=== PATIENT | male | born 1945 | race Caucasian/White ===

== ENCOUNTER 2016-08-23 14:20 | Inpatient (IN) | payer MEDICARE ==
[~2016-08-23] VITALS: Ht 175.3 cm; Wt 91.6 kg
--- NOTE | ~2016-08-23 | HEMODYNAMI ---
PATIENT:SOLO VALDERRAMA I MEDICAL RECORD: [id number] : 41 [id number] ADMISSION DATE: 08/23/16 Generatedon:08/24/20168:56 Patient name: SLOO VALDERRAMA Patient #: [id number] SSN: : 1945 Date of study: 08/24/2016 Page: Of Hemodynamic Procedure Report Patient Data Patient Demographics Procedure consent was obtained First Name: SOLO Gender: Male Last Name: LAVELLE : 1945 [facility] Initial: I Age: 71 year(s) Patient #: [id number] Race: Additional ID: [id number] Contact details Address: [address] [place] [address] State: [place] City: [place] Zip code: [address] Past Medical History Allergies: No known allergies Admission Admission Data Admission Date: 08/23/2016 Admission Time: 14:20 Room #: D.2116 Lab Results Lab Result Date: 08/24/2016 Lab Result Time: 0:00 Biochemistry Name Units Result Min Max Creatinine mg/dl 0.9 --(-*--)-- 0.6 1.3 CBC Name Units Result Min Max Hemoglobin g/dl 15.4 --(-*--)-- 13.5 17.5 Procedure Procedure Types Cath Procedure Diagnostic Procedure [facility] w/Coronaries PCI Procedure Coronary Stent Initial Miscellaneous Procedures Moderate Sedation up to 45 minutes Procedure Description Procedure Date Procedure Date: 08/24/2016 Procedure Start Time: 8:20 Procedure End Time: 8:51 Procedure Staff Name Function Dwight Aguilar MD Performing Physician Sandy Bains RN Nurse Jeremy Garcia RT Monitor Odilno Shah RT Scrub Procedure Data Cath Procedure Fluoroscopy Diagnostic fluoroscopy Total fluoroscopy Time: time: 13.3 min 13.3 min Diagnostic fluoroscopy Total fluoroscopy dose: dose: 1489 mGy 1489 mGy Contrast Material Contrast Material Type Amount (ml) Isovue 300 153 Entry Location Entry Primary Successful Side Size Upsize Upsize Entry Closure Succes sful Closure Location (Fr) 1 (Fr) 2 (Fr) Remarks Device Remarks Femoral Right 5 Fr 6 Fr Vascade artery Short Closure System Diagnostic catheters Device Type Used For End Catheter Placement Cordis 5Fr Pigtail LV Angiography Catheter (MP) Cordis 5Fr JL 4.0 Left Coronary Catheter (MP) Angiography Cordis 5Fr 3DRC Catheter Right Coronary (MP) Angiography Procedure Complications No complications Procedure Medications Medication Administration Route Dosage Oxygen NC 2 l/min Heparin Flush Bag added to field 2 bags (1000units/500ml NS) Lidocaine 2% added to field 20 Zofran I.V. 4 mg Versed I.V. 0.5 mg Fentanyl I.V. 50 mcg Integrilin (Bolus I.V. 8.5 ml 2mg/ml) Heparin Bolus I.V. 5000 units Versed I.V. 0.5 mg Plavix P.O. 75 mg Hemodynamics Rest HGB: 15.4 (g/dl) Heart Rate: 60 (bpm) Snapshots Pre Cath Intra NCS Post Cath Vital Signs Time Heart Resp SPO2 etCO2 AE1oirc NIBP (mmHg) Rhythm Pain Sedation Rate (ipm) (%) (mmHg) (mmHg) Status Level (bpm) 8:04:06 63 24 100 0 0 133/75(109) NSR 0 (11) 10(A) , No pain 8:08:24 63 30 99 0 0 123/79(102) NSR 0 (11) 10(A) , No pain 8:12:30 59 29 100 0 0 111/61(97) NSR 0 (11) 10(A) , No pain 8:16:40 64 25 99 0 0 112/65(90) NSR 0 (11) 10(A) , No pain 8:20:54 52 33 100 0 0 103/55(82) SB 0 (11) 10(A) , No pain 8:25:02 62 19 100 0 0 108/62(85) NSR 0 (11) 9(A) , No pain 8:29:14 61 16 100 0 0 104/57(79) NSR 0 (11) 9(A) , No pain 8:33:23 62 20 100 0 0 100/59(81) NSR 0 (11) 9(A) , No pain 8:37:29 59 18 100 0 0 108/62(85) NSR 0 (11) 9(A) , No pain 8:41:39 61 18 100 0 0 97/60(73) NSR 0 (11) 10(A) , No pain 8:45:47 52 18 100 0 0 103/57(79) SB 0 (11) 10(A) , No pain 8:49:55 52 18 100 0 0 104/55(88) SB 0 (11) 10(A) , No pain Medications Time Medication Route Dose Verified Delivered Reason Notes Effectiveness by by 8:03:32 Oxygen NC 2 Dwight Sandy Per physician pt repo rts l/min Lauren Bains RN shortness of breath, pt has noted laboured breathing with congestion, and expiratory audible wheezing. 8:03:40 Heparin Flush added 2 Dwight Dwight used for Bag to bags Lauren Aguilar MD procedure (1000units/500ml field NS) 8:03:46 Zofran I.V. 4 mg Dwight Sandy Per physician pt repo rts Lauren Bains RN nausea and is retching 8:03:46 Lidocaine 2% added 20ml Dwight Dwight used for to vial Lauren Aguilar MD procedure field 8:15:08 Versed I.V. 0.5 Dwight Sandy for sedation mg Lauren Bains RN 8:15:25 Fentanyl I.V. 50 Dwight Sandy for sedation mcg Lauren Bains RN 8:24:49 Heparin Bolus I.V. 5000 Dwight Thorntonca for dose units Lauren Bains RN anticoagulation verified wtih dr aguilar 8:28:53 Integrilin I.V. 8.5 Dwight Sandy for 1.5 ml (Bolus 2mg/ml) ml Lauren Bains RN antiplatelet wasted therapy 8:30:17 Versed I.V. 0.5 Dwight Sandy for sedation mg Lauren Bains RN 8:50:01 Plavix P.O. 75 mg Dwight Sandy for Lauren Bains RN antiplatelet therapy Procedure Log Time Note 7:30:52 Jeremy Garcia RT(R) sent for patient. Start room use. 7:33:42 Diagnostic Cath status Elective 7:33:53 Time tracking: Regular hours 7:33:58 Plan of Care:Hemodynamics will remain stable., Cardiac rhythm will remain stable., Comfort level will be maintained., Respiratory function will remain adequate., Patient/ family verbilizes understanding of procedure., Procedure tolerated without complication., Recovers from procedure without complications.. 7:53:34 Patient received from PCU to CCL 1 Alert and oriented. Tansferred to table in Supine position. 7:53:36 Warm blankets applied, and chelle hugger turned on for patient comfort. 7:53:36 Correct patient and procedure confirmed by team. 7:53:37 Signed procedure consent form obtained from patient. 7:53:38 ECG and BP/O2 sat monitors applied to patient. 7:53:39 Full Disclosure recording started 8:02:56 Vital chart was started 8:03:32 Oxygen 2 l/min NC was given by Sandy Bains RN; Per physician; pt reports shortness of breath, pt has noted laboured breathing with congestion, and expiratory audible wheezing. 8:03:40 Heparin Flush Bag (1000units/500ml NS) 2 bags added to field was given by Dwight Aguilar MD; used for procedure; 8:03:46 Zofran 4 mg I.V. was given by Sandy Bains RN; Per physician; pt reports nausea and is retching 8:03:46 Lidocaine 2% 20ml vial added to field was given by Dwight Aguilar MD; used for procedure; 8:04:59 Rhythm: sinus rhythm 8:05:32 H&P Date Dictated: 08/23/2016 Within 30 days and on chart.. 8:05:41 Pre-procedure instructions explained to patient. 8:05:41 Pre-op teaching completed and patient verbalized understanding. 8:05:42 Family in waiting room. 8:05:44 Patient NPO since Midnight. 8:05:49 Patient allergic to No known allergies 8:05:52 Is the patient allergic to Iodine/contrast media? No. 8:05:53 Is patient on blood thinner?Yes 8:05:56 ACC The patient was administered the following blood thiners within the last 24 hours: ACCPlavix 8:06:03 Patient diabetic? No. 8:06:27 Previous problem with sedation/anesthesia? No ? 8:06:29 Snore? Yes 8:06:30 Sleep apnea? No 8:06:31 Deviated septum? No 8:06:51 Opens mouth fully? Yes 8:06:52 Sticks out tongue? Yes 8:06:56 Airway obstruction? Yes COPD 8:06:59 Dentures? No ? 8:07:02 Pre procedure: right dorsailis pedis pulse 2+ Normal; easily identifiable; not easily obliterated 8:07:04 Modified Corby's test Ulnar > 7 seconds. 8:07:06 Patient pain scale 0/10 ?. 8:07:13 IV patent on arrival in left forearm with 0.9% NaCl at [facility]. 8:08:10 Lab Result : Creatinine 0.9 mg/dl 8:08:10 Lab Result : Hemoglobin 15.4 g/dl 8:08:14 Lab results completed and on chart. 8:08:17 Right groin area was prepped with chlora-prep and draped in sterile fashion 8:08:17 Alarms reviewed by R. N. 8:08:19 Sharps counted by scrub and verified by R.N. 8:08:26 Use device set Femoral Dx 8:08:27 Acist Syringe opened to sterile field. 8:08:28 Bag Decanter opened to sterile field. 8:08:28 Medline Cath Pack opened to sterile field. 8:08:29 Terumo 5Fr [employer] Sheath opened to sterile field. 8:08:29 St Americo 260cm J .035 wire opened to sterile field. 8:08:30 Acist Hand Control opened to sterile field. 8:08:31 Acist Manifold opened to sterile field. 8:08:31 Diagnostic Infinity 5Fr Multipack catheter opened to sterile field. 8:08:32 Tegaderm 4 x 4 opened to sterile field. 8:08:39 Baseline sample Acquired. 8:10:26 ACC Patient presents with Unstable Angina CCS Anginal Class 3--Marked limitation of physical activity, angina occurs with ordinary activity.. 8:14:42 --------ALL STOP TIME OUT------ 8:14:43 Final Timeout: patient, procedure, and site verified with staff and physician. All members of the team are in agreement. 8:14:46 Right groin site verified by team. 8:14:49 Physical assessment completed. ASA score P 3 - A patient with severe systemic disease as per Dwight Aguilar MD. 8:14:54 Sedation plan: IV Moderate Sedation Versed, Fentanyl 8:15:08 Versed 0.5 mg I.V. was given by Sandy Bains RN; for sedation; 8:15:25 Fentanyl 50 mcg I.V. was given by Sandy Bains RN; for sedation; 8:19:31 Zero performed for pressure channel P1 8:19:34 Zero performed for pressure channel P1 8:19:36 Zero performed for pressure channel P1 8:19:39 Zero performed for pressure channel P1 8:19:58 Procedure started. 8:20:04 Local anesthetic to right femoral artery with Lidocaine 2% by Dwight Aguilar MD.INITIAL ACCESS ONLY 8:20:10 A 5 Fr sheath was inserted into the Right Femoral artery 8:20:52 A Cordis 5Fr Pigtail Catheter (MP) was advanced over the wire and used for LV Angiography. 8:21:30 LV angiography performed. 8:21:32 LV gram done using AGARWAL 8:21:57 EF : 20 % 8:22:00 Catheter removed. 8:22:06 A Cordis 5Fr JL 4.0 Catheter (MP) was advanced over the wire and used for Left Coronary Angiography. 8:22:09 LCA angiography performed. 8:23:00 Catheter removed. 8:23:27 A Cordis 5Fr 3DRC Catheter (MP) was advanced over the wire and used for Right Coronary Angiography. 8:23:30 RCA angiography performed. 8:24:27 Catheter removed. 8:24:40 Terumo 6Fr [employer] Sheath opened to sterile field. 8:24:40 Cevallos Whisper J 300cm 0.014 guide wire opened to sterile field. 8:24:41 [employer] BasixCompak Inflation Kit opened to sterile field. 8:24:41 Cordis 6FR XBLAD 4.0 guide catheter opened to sterile field. 8:24:49 Heparin Bolus 5000 units I.V. was given by Sandy Bains RN; for anticoagulation; dose verified wtih dr aguilar 8:24:49 Sheath upsized to a 6 Fr Short. 8:25:07 ACC PCI Site: LMCA has 90% stenosis. 8:25:12 ACC PCI Site: pLAD has 90% stenosis. 8:25:14 ACC Pre-intervention ANTONIA Flow is 3. 8:25:20 6 Fr XBLAD 4 guide catheter was inserted over the wire 8:27:01 WHISPER wire advanced. 8:27:48 CX 8:27:58 Cevallos Whisper J 300cm 0.014 guide wire opened to sterile field. 8:28:07 WHISPER wire advanced. 8:28:13 LAD 8:28:53 Integrilin (Bolus 2mg/ml) 8.5 ml I.V. was given by Sandy Bains RN; for antiplatelet therapy; 1.5 ml wasted 8:30:17 Versed 0.5 mg I.V. was given by Sandy Bains RN; for sedation; 8:31:39 Wire removed. 8:31:49 LAD WIRE REMOVED 8:32:00 Cevallos Fielder XT J 300cm 0.014 guide wire opened to sterile field. 8:32:16 Cevallos Fielder XT J 300cm 0.014 guide wire opened to sterile field. 8:32:26 LAD FIELDER wire advanced. 8:35:38 Wire removed. 8:35:45 LAD OUT 8:36:57 Venture 6F catheter opened to sterile field. 8:37:21 6 Fr VENTURE guide catheter was inserted over the wire 8:37:28 FIELDER wire advanced. 8:40:06 Newton Danfoss IXA Sensor Technologies Choice PT Extra Support J 300cm .014 gu opened to sterile field. 8:40:23 Wire removed. 8:40:34 CPTES wire advanced. 8:41:55 Guide catheter removed. 8:42:02 VENTURE 8:42:08 Wire removed. 8:43:04 Inflation number: 1 A Newton Sci Dupage 2.5 X 15 balloon was prepped and advanced across the Prox CX, then inflated to 19 HU for 0:15 (min:sec). 8:43:16 Balloon removed over the wire. 8:45:17 Inflation Number: 1 A Medtronic Resolute 3.0 X 38 stent was prepped and advanced across the LMCA. The stent was deployed at 15 HU for 0:11 (min:sec). 8:46:04 Inflation number: 2 The stent balloon was then re-inflated across the LMCA to 21 HU for 0:11 (min:sec). 8:46:26 Stent catheter was removed intact over wire. 8:46:27 Wire removed. 8:46:28 Guide catheter removed. 8:46:43 Contrast amount:Isovue 300 153ml. 8:46:49 Sheath removed intact; hemostasis achieved with Vascade Closure System to the Right Femoral artery. 8:46:55 Vascade 6/7 Fr Closure Device opened to sterile field. 8:47:01 Procedure ended.(Physican Out) 8:47:14 Fluoroscopy time 13.30 minutes. 8:47:20 Fluoroscopy dose: 1489 mGy 8:47:20 Flurop Dose total: 1489 8:47:21 Sharps counted by scrub and verified by R.N. 8:47:22 Insertion/operative site no bleeding no hematoma. 8:47:24 Post-op/insertion site Right Femoral artery dressed using a 4 x 4 and Tegaderm. 8:47:27 Post right femoral artery:stable 8:47:45 Post Procedure Pulses reassessed and unchanged 8:47:46 Post procedure: right dorsailis pedis pulse 1+ Palpable, but thready & weak; easily obliterated. 8:47:51 Post procedure rhythm: sinus rhythm 8:47:52 Post procedure instruction explained to patient.Patient verbalizes understanding. 8:47:53 Patient needs reinforcement of post procedure teaching. 8:48:19 Procedure type changed to Cath procedure, Diagnostic procedure, LHC, LHC w/Coronaries, PCI procedure, Coronary Stent Initial, Miscellaneous Procedures, Moderate Sedation up to 45 minutes 8:48:48 Procedure and supply charges have been captured, reviewed, submitted and are correct. 8:49:15 Procedure Complication : No complications 8:49:24 St Americo Femstop Arch Gold opened to sterile field. 8:50:01 Plavix 75 mg P.O. was given by Sandy Bains RN; for antiplatelet therapy; 8:50:24 Femstop placed over the right femoral artery at 90 mmHg. Hemostasis achieved. 8:50:48 FEMSTOP WAS PLACED FOR SAFETY OF THE RFA 8:50:52 Vital chart was stopped 8:50:53 See physician's report for complete and final results. 8:50:54 Report given to PCU. 8:50:57 Patient transfered to PCU with Bed. 8:50:59 Procedure ended. 8:50:59 Full Disclosure recording stopped 8:51:10 ACC-PCI Only Patient was given prescriptions, or instructed by Dwight Aguilar MD to start/continue the following medications upon discharge: Plavix 8:51:11 End room use (Document Last) Intervention Summary Intervention Notes Time ActionType Lesion and Equipment Action# Pressure Duration Attributes Used 8:43:04 Inflate Prox CX Newton 1 19 00:16 balloon Sci Dupage 2.5 X 15 balloon 8:45:17 Place stent LMCA Medtronic 1 15 00:11 Resolute 3.0 X 38 stent 8:46:04 Reinflate LMCA Medtronic 2 21 00:11 stent Resolute balloon 3.0 X 38 stent Device Usage Item Name Manufacture Quantity Catalog Number Hospital Part Current Mini mal Lot# / Charge Number Stock Stock Serial# Code Acist Acist 1 09139 428378 984662 989708 20 Syringe Medical Systems Inc Bag Microtek 1 2002S 830688 53566 689974 5 Sar[employer] Inc. Medline Cardinal 1 [id number] 789289 63454 429269 5 Cath Pack Health Terumo 5Fr Terumo 1 [id number] 228671 256875 165396 [address] [facility] St Americo 1 750899 514049 575608 728028 30 260cm J .035 wire Acist Hand Acist 1 92520 187139 294234 470757 5 Control Medical Systems Inc Acist Acist 1 42791 558244 022145 483555 5 General Lasertronics Corporation Medical Systems Inc Diagnostic Cardinal 1 NZ3534 175506 12655 820818 30 Infinity Health 5Fr Multipack catheter Tegaderm 4 3M 1 1626W 008870 941524 053256 5 x 4 Cordis 5Fr Cardinal 1 746371 5 Pigtail Health Catheter (MP) Cordis 5Fr Cardinal 1 488168 5 JL 4.0 Health Catheter (MP) Cordis 5Fr Cardinal 1 684224 5 3DRC Health Catheter (MP) Terumo 6Fr Terumo 1 VIE776 581468 067130 940184 40 Beale [employer] Sheath CashCashPinoy 2 [id number] 149186 804232 622808 5 Whisper J Vascular 300cm 0.014 guide wire Merit Merit 1 GT5127 892230 868075 508370 15 [employer]Club Medical Inflation Kit Cordis 6FR Cardinal 1 [id number] 888424 530898 285956 3 XBLAD 4.0 Health guide catheter Cevallos Cevallos 2 [id number] 626245 082033 441337 5 Fielder XT Vascular J 300cm 0.014 guide wire Venture 6F Vascular 1 5821 740841 449132 482367 1 359785 catheter Solutions Newton Sci Newton 1 [id number] 883071 251790 022030 5 [id number] Choice PT Scientific Extra Support J 300cm .014 gu Newton Sci Newton 1 [id number] 348912 992416 722699 1 [id number] Dupage Scientific 2.5 X 15 balloon Medtronic Medtronic 1 [id number] 697064 684474 0 [id number] Resolute 3.0 X 38 stent Vascade 11/28 Cardiva 1 [id number] 215532 978680 582051 5 Fr Closure Medical, Device Inc. St Americo St Americo 1 [id number] 358980 950815 773099 5 Femstop Arch Gold Signature Audit [place] Stage Time Signature Unsigned Intra-Procedure 08/24/2016 Odilon Shah 8:56:22 AM RT(R) Signatures Monitor : Jeremy Garcia RT Signature : Date : Time : [place] [id number] [facility] [place] [address]
--- NOTE | 2016-08-23 14:33 | NUR ---
TRANSFER FROM [facility]. OREINTED TO ROOM. CALL LIGHT IN REACH. WILL CONT. PLAN OF CARE.
[2016-08-23] MEDS ORDERED: IBUPROFEN800 MG PO (14:45)
[2016-08-23 14:48] VITALS: BP 147/76; BMI 29.9
--- NOTE | 2016-08-23 16:37 | NUR ---
CONSENTS SIGNED FOR [facility]. IV RESTARTED TO RIGHT ARM BY NERY MARCIAL. WILL CONT. PLAN OF CARE.
[2016-08-23 20:00] VITALS: BP 117/52
[2016-08-24] VITALS: BP 99/60
--- NOTE | 2016-08-24 03:33 | NUR ---
TOP LIFT CUTTER AT BEDSIDE TO OBTAIN VITALS, CALL LIGHT IN REACH. WILL CONTINUE WITH PLAN OF CARE.
[2016-08-24 04:00] VITALS: BP 115/69
--- NOTE | 2016-08-24 07:35 | NUR ---
AAOX4 RESP UNLABORED NAD NOTED DENIES ANY NEEDS OR DISCOMFORT AT THIS TIME
--- NOTE | 2016-08-24 07:51 | NUR ---
ASSESSMENT COMPLETED. TELEMERTY SHOWS SR WITH BBB AND RARE PVC. PT IS WHEEZING. O2 AT 2 L/M PER NC. TO RISK ADVISOR PER BED
[2016-08-24 08:07] VITALS: BP 129/64
--- NOTE | 2016-08-24 08:55 | NUR ---
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 02 AT 95%. TELEMERTY SHOWS SB. RIGHT GROIN SOFT WITH FEM STOP IN PLACE. PPP. EYES CLOSED WITH FAMILY AT BEDSIDE. SR UP.WILL MONITOR
[2016-08-24 11:23] VITALS: BP 106/62
[2016-08-24 12:20] VITALS: Ht 175.3 cm; Wt 91.6 kg
--- NOTE | 2016-08-24 12:22 | NUR ---
V/S STABLE, DRSG TO RIGHT GROIN DRY AND INTACT. TELEMERTY SHOWS SR. FAMILY AT BEDSIDE. WILL MONITOR
--- NOTE | 2016-08-24 15:41 | NUR ---
Patient Name: SOLO VALDERRAMA Admission Status: Elective Accout number: [id number] Admission Date: 08-23-2016 : 1945 Admission Diagnosis: Attending: FELIX Current LOS: 1 Anticipated DC Date: 08-25-2016 Planned Disposition: Home Primary Insurance: [facility] Discharge Planning Comments: * Is the patient Alert and Oriented? Yes 0 * How many steps to enter\exit or inside your home? NONE 0 * PCP [facility] [place] NP 0 * [facility] * Preadmission Environment Home with Family 0 * ADLs Independent 0 * Equipment Cane 0 * Other Equipment NO MEDICAL EQUIPMENT PROVIDER PREFERENCE 0 * List name and contact numbers for known caregivers / representatives who currently or will assist patient after discharge: NORMA VALDERRAMA, SPOUSE, 0 * Community resources currently utilized None 0 * Please name any agencies selected above. NONE 0 * Additional services required to return to the preadmission environment? No 0 * Can the patient safely return to the preadmission environment? Yes 0 * Has this patient been hospitalized within the prior 30 days at any hospital? No 0 CM MET WITH PT AND SPOUSE IN ROOM TO DISCUSS DISCHARGE PLANNING AND NEEDS. PT REPORTS LIVING AT HOME INDEPENDENTLY WITH SPOUSE. PT HAS A CANE WITH NO MEDICAL EQUIPMENT PROVIDER PREFERENCE. PT HAS NO OUTSIDE SERVICES ASSISTING IN THE HOME. CM DISCUSSED AVAILABILITY OF HOME HEALTH, REHAB SERVICES AND MEDICAL EQUIPMENT. PT DENIES DISCHARGE NEEDS, REPORTS HIS OR DAUGHTER WILL PICK HIM UP FOR DISCHARGE HOME. PATIENT PLANS TO DISCHARGE HOME WITH SPOUSE, NO ANTICIPATED DISCHARGE NEEDS. CM TO FOLLOW AND ASSIST IF NEEDED. File Machine Operator: Carlos Saucedo
[2016-08-24 15:59] VITALS: BP 108/72
[2016-08-24 20:31] VITALS: BP 121/64
[2016-08-25 00:15] VITALS: BP 104/57
--- NOTE | 2016-08-25 01:04 | NUR ---
PT RESTING WELL WITHOUT C/O OR DISTRESS NOTED. EYES CLOSED AND RESP EVEN AND UNLABORED. CALL LIGHT WITHIN REACH. WILL CONTINUE TO MONITOR.
[2016-08-25 04:30] VITALS: BP 98/50
[2016-08-25 07:55] VITALS: BP 139/73
--- NOTE | 2016-08-25 09:50 | NUR ---
RESP UL ON 02 2L NC. TELEMETRY SR. UP SOB WITH CALL LIGHT IN REACH. WILL CONT. PLAN OF CARE.
[2016-08-25 11:47] VITALS: BP 123/72
--- NOTE | 2016-08-25 12:41 | NUR ---
IV AND TELEMETRY DCD. DC PLANS GIVEN. UNDERSTANDING VOICED. ESCORTED TO CAR BY W/C.
--- NOTE | 2016-09-03 10:08 | OP ---
PATIENT NAME: SOLO VALDERRAMA I MEDICAL RECORD: [id number] :41 LOCATION:D.M2 D.2116 ADMISSION DATE:08/24/16 SURGEON: GODWIN MORALES MD DATE OF OPERATION: 08/24/2016 PROCEDURES: 1. PTCA stent, left main. 2. Left heart catheterization. 3. Selective coronary angiography. 4. Left ventriculogram. INDICATION: Non-Q-wave myocardial infarction. DESCRIPTION OF PROCEDURE: After informed consent was obtained and after a detailed explanation of the risks, benefits as well as alternative therapies, the patient elected to proceed with angiogram and angioplasty. The right femoral area was prepped and draped in normal sterile fashion. The right femoral artery was cannulated via modified Seldinger technique with placement of 6-Armenian sheath. FINDINGS: Left ventriculogram was performed in standard 30-degree AGARWAL view reveals global hypokinesis throughout all segments that is severe, ejection fraction 20%. SELECTIVE CORONARY ANGIOGRAPHY: 1. Left main has 95% stenosis. 2. The left anterior descending is totally occluded. 3. Left circumflex has a 95% stenosis in it as well. 4. The right coronary has moderate irregularities, but no flow-limiting stenosis throughout. PERCUTANEOUS TRANSLUMINAL CORONARY ANGIOPLASTY STENT OF THE LEFT MAIN: We tried to wire the total occlusion of the LAD; however, no wire would cross this total occlusion. We then turned our attention to the left main and left circumflex. We were able to cover both lesions with a 3.0 x 38 mm Resolute stent. Result was 0% residual stenosis. OVERALL IMPRESSION: Successful percutaneous transluminal coronary angioplasty stent of the left main and left circumflex going from 95% initial stenosis to 0% residual stenosis. TRANSINT:[id number] Voice Confirmation ID: [id number] DOCUMENT ID: [id number] GODWIN MORALES MD at 1008 CC: [id number] DICTATION DATE: 08/24/16 0855 [employer] SERVICE MEAT MANAGER: 08/24/16 1455 DIS IN 08/25/16 [facility] [address] [id number]
--- NOTE | 2016-09-03 10:08 | HP ---
PATIENT: SOLO VALDERRAMA I MEDICAL RECORD: [id number] ACCOUNT: [id number] LOCATION:[facility] D.[id number] : 41 ADMISSION DATE: 08/24/16 HISTORY AND PHYSICAL EXAMINATION DIAGNOSES: 1. Non-Q-wave myocardial infarction. 2. Bronchitis. 3. Chronic obstructive pulmonary disease. HISTORY OF PRESENT ILLNESS: This is a gentleman who presented to [facility] with shortness of breath, found to have positive troponin. EKG has T-wave inversions in the lateral leads. No previous cardiac history. PHYSICAL EXAMINATION: GENERAL APPEARANCE: Well-nourished, well-developed, appears stated age. Level of distress, comfortable. PSYCHIATRIC: Mental status, alert, normal affect. Orientation, oriented to time, place and person. EYES: Lids and conjunctiva, noninjected. No discharge, no pallor. ENT: Lips, teeth, gums, normal dentition. Oropharynx, no cyanosis, no pallor. NECK: Carotid arteries, bilateral normal upstroke, no bruits, no thrills. JUGULAR VEINS: No jugular venous pressure or distention. CERVICAL LYMPH NODES: Nontender, nonenlarged. THYROID: Not enlarged. Nontender. No nodules. LUNGS: Respiratory effort, unlabored. CHEST: Normal curvature. No thoracic deformity. No chest wall tenderness. Percussion, resonant. Auscultation, clear. No wheezes, no rales, no rhonchi. CARDIOVASCULAR: Precordial exam, nondisplaced. No heaves or pericardial thrills. Rate and rhythm, regular. Heart sounds, normal S1, normal S2. No S3, no gallop, no rub. Systolic murmur, not heard. Diastolic murmur, not heard. EXTREMITIES: No cyanosis, no edema. Peripheral pulses, full and equal in all extremities, except as noted. No bruits appreciated. ABDOMEN: Soft, nondistended. Normal aorta. No bruit. Nontender. No masses. Liver, nontender, no hepatomegaly. Spleen, nontender, no splenomegaly. MUSCULOSKELETAL: No joint tenderness. No joint swelling. No erythema. NEUROLOGICAL: Normal gait, normal strength, normal tone. SKIN: Warm and dry. REVIEW OF SYSTEMS: The patient reports easy bruising but reports no swollen glands. The patient reports no fever, no night sweats, no significant weight gain, no significant weight loss. No significant exercise tolerance. The patient reports no dry eyes, no irritation, no vision change. Patient reports no difficulty hearing and no ear pain. Patient reports no frequent nose bleeds or nose and sinus problems. Patient reports on arm pain on exertion. No shortness of breath while lying down. No history of heart murmur. Patient reports no cough, no wheezing or coughing up blood. Patient reports no abdominal pain, no vomiting. Normal appetite. No diarrhea and not vomiting blood. No nausea and no constipation. Patient reports no incontinence. No difficulty urinating. No hematuria. No increased frequency. Patient reports no muscle aches. No weakness, no arthralgias, no back pain. No swelling of the extremities. Patient reports no abnormal mole, no jaundice, no rashes. Reports no loss of consciousness. No weakness and no numbness. No seizures, dizziness, or headaches. The patient reports no depression, no sleep disturbance, feeling safe in a relationship and no alcohol abuse. Patient reports on fatigue. HISTORY AND PHYSICAL [id number] SOLO VALDERRAMA I Reports no runny nose or sinus pressure. No itching, no hives, and no frequent sneezing. OVERALL IMPRESSION: Non-Q-wave myocardial infarction. We will proceed with coronary angiography in the a.m. We will start aspirin, Plavix, metoprolol, and pravastatin today. We will also treat with antibiotics for the bronchitis. Further care depends upon findings of the catheterization. TRANSINT:[id number] Voice Confirmation ID: [id number] DOCUMENT ID: [id number] GODWIN MORALES MD at 1008 CC: [id number] DICTATION DATE: 08/23/16 154 METEOROLOGICAL OBSERVER: 08/23/16 1817 DIS IN 08/25/16 [facility] [address] [place] [address]
== END 2016-08-25 12:42 | disposition home or self-care (01) | DRG 247 ==
LOC: OBSVTIME → D.M2 14:20 → OBSVTIME 14:20 → D.M2 14:20 → D.CATH 14:20 → UNDOADMOB 14:20 → EDSTATUS 08-24 07:30 → D.CATH 08-24 14:20 → D.M2 08-24 14:56
PROVIDERS: ADMIT Internal Medicine Interventional Cardiology
PROC: B2111ZZ Fluoroscopy of Multiple Coronary Arteries using Low Osmolar Contrast (ICD-10-PCS; 2016-08-24)
PROC: B2151ZZ Fluoroscopy of Left Heart using Low Osmolar Contrast (ICD-10-PCS; 2016-08-24)
PROC: 027134Z Dilation of Coronary Artery, Two Arteries with Drug-eluting Intraluminal Device, Percutaneous Approach (ICD-10-PCS; principal; 2016-08-24 07:30)
PROC: 4A023N7 Measurement of Cardiac Sampling and Pressure, Left Heart, Percutaneous Approach (ICD-10-PCS; 2016-08-24 07:30)
DX: I21.4 Non-ST elevation (NSTEMI) myocardial infarction (principal); J44.9 Chronic obstructive pulmonary disease, unspecified; J40 Bronchitis, not specified as acute or chronic